=== PATIENT | female | born 1995 | race Two or more races ===

== ENCOUNTER 2018-01-30 06:42 | Day surgery (SDC) | payer OTHER ==
[2018-01-30] MEDS ORDERED: Sodium Chloride 0.9% 10 ML Syringe FLUSH PRN (06:45)
[2018-01-30] MEDS: Lactated Ringers 1,000 ML IV SCH (07:50)
[2018-01-30] MEDS ORDERED: Ondansetron 4 MG/2 ML SDV IVPUSH ONE (08:00)
[2018-01-30] MEDS ORDERED: Rocuronium 100 MG/10 ML MDV IV ONE (08:00)
[2018-01-30] MEDS ORDERED: Ketorolac 30 MG/ML SDV IVPUSH ONE (08:00)
[2018-01-30] MEDS ORDERED: cefTRIAXone 1,000 MG VIAL IV ONE (08:00)
[2018-01-30] MEDS ORDERED: Lactated Ringers 1,000 ML IV ONE (08:00)
[2018-01-30] MEDS ORDERED: Midazolam 1 MG/ML 2 ML SDV IV ONE (08:00)
[2018-01-30] MEDS ORDERED: Propofol 200 MG/20 ML SDV IV ONE (08:00)
[2018-01-30] MEDS ORDERED: fentaNYL 100 MCG/2 ML SDV IV ONE (08:00)
--- NOTE | 2018-01-30 08:10 | PCM.PN ---
- General Info Date of Service: 01/30/18 - Review of Systems Systems Review Comment:: 22 y/o female here for tonsillectomy. She has a history of chronic tonsillitis. She is medically stable with no significant recent changes to her health status. I have again discussed the proposed procedure with the patient. Instructions reviewed and she agrees to proceed accepting the risks. - Patient Data Vitals - Most Recent: Last Vital Signs Temp 97.9 F 01/30/18 07:15 Pulse 68 01/30/18 07:15 Resp 16 01/30/18 07:15 BP 125/84 01/30/18 07:15 Pulse Ox 100 01/30/18 07:15 Weight - Most Recent: 161 lb Lab Results Last 24 Hours: Laboratory Results - last 24 hr 01/30/18 Range/Units 06:45 Urine HCG, Qual Negative (NEGATIVE) Med Orders - Current: Current Medications Lactated Ringer's (Ringers, Lactated) 1,000 mls @ 125 mls/hr IV ASDIRECTED MENA Last Admin: 01/30/18 07:50 Dose: 125 mls/hr Sodium Chloride (Saline Flush) 10 ml FLUSH ASDIRECTED PRN PRN Reason: Keep Vein Open - Problem List Review Problem List Initiated/Reviewed/Updated: Yes - My Orders Last 24 Hours: My Active Orders 01/30/18 06:45 Patient Status [ADT] Routine Patient to Empty Bladder [RC] ASDIRECTED Verify Patient Consent Obtain [RC] ASDIRECTED HCG QUALITATIVE,URINE [URCHEM] Routine Lactated Ringers [Ringers, Lactated] 1,000 ml IV ASDIRECTED Sodium Chloride 0.9% [Saline Flush] 10 ml FLUSH ASDIRECTED PRN Peripheral IV Insertion Adult [OM.PC] Routine 01/30/18 Breakfast Nothing Per Oral Diet [DIET] - Assessment Assessment:: Chronic tonsillitis - Plan Plan:: Tonsillectomy
--- NOTE | 2018-01-30 08:59 | PCM.OPNOTE ---
- General Post-Op/Procedure Note Date of Surgery/Procedure: 01/30/18 Operative Procedure(s): Tonsillectomy Findings: Large Chronically inflamed tonsils Pre Op Diagnosis: Chronic Tonsillitis Post-Op Diagnosis: Same Anesthesia Technique: General ET Tube Primary Surgeon: Ricardo Dave Pathology: Tonsils Output, Urine Amount: 0 EBL in mLs: 25 Complications: None Condition: Good
[2018-01-30] MEDS: Ondansetron 4 MG/2 ML SDV IVPUSH ONE (10:07)
[2018-01-30] MEDS: Dexamethasone 4 MG/ML SDV IVPUSH ONE (10:10)
[2018-01-30] MEDS: Acetaminophen/HYDROcodone 108-2.5 MG/5 ML Soln 15 ML UD Cup PO ONE (10:49)
--- NOTE | 2018-01-30 10:52 | OR ---
DATE OF OPERATION: 01/30/2018 SURGEON: Ricardo Dave MD PREOPERATIVE DIAGNOSIS: Chronic tonsillitis. POSTOPERATIVE DIAGNOSIS: Chronic tonsillitis. OPERATION PERFORMED: Tonsillectomy. INDICATIONS FOR SURGERY: This 22-year-old female has a history of recurring tonsillar infections and has persistent symptoms from chronically inflamed tonsils. She comes for tonsillectomy. FINDINGS: The patient's tonsils are both enlarged and show chronic inflammation with deep crypts. There is no significant adenoid hypertrophy. PROCEDURE IN DETAIL: The patient was taken to the operating room. She was given general endotracheal anesthesia and positioned with her neck extended. The mouth gag is inserted. Palpation of the adenoid fossa revealed it to be empty and attention was turned to the tonsils. The right tonsil was dissected free from its respective tonsillar bed using careful cautery dissection. The left tonsil was then dissected free from its tonsillar bed using cautery as well. Full hemostasis of the tonsillar bed was assured with the use of electrocautery. There was a period of observation without tension on the tongue and after it was assured that there was good hemostasis and no sign of any complication, the mouth gag was removed and the patient was awakened, extubated, and taken from the operating room in satisfactory condition. ESTIMATED BLOOD LOSS: 25 mL. COMPLICATIONS: None. PROGNOSIS: Good. /[id number] ANIRUDH/TEODORO
[2018-01-30 11:59] VITALS: BP 136/86
== END 2018-01-30 11:40 | disposition home or self-care (01) ==
LOC: FB.SDS 06:42
PROVIDERS: ATTEND Surgery
DX: J35.01 Chronic tonsillitis (principal); J45.909 Unspecified asthma, uncomplicated; Z87.891 Personal history of nicotine dependence; Z79.3 Long term (current) use of hormonal contraceptives; Z79.899 Other long term (current) drug therapy; Z91.018 Allergy to other foods
CPT/HCPCS: 81025; 88304; A9270-GY; J0696; J1100; J1885; J2250; J2405; J2704; J3010; J7120